=== PATIENT | male | born 1985 | race Caucasian/White ===

== ENCOUNTER 2018-11-17 09:20 | Emergency (ER) | payer OTHER ==
--- NOTE | 2018-11-17 09:25 | ED Physician Documentation ---
General Adult - HISTORIAN Historian: patient - HPI Stated Complaint: feels the back of his throat is swelling shut Chief Complaint: Sore Throat Onset: hours (5) Timing: still present Severity: moderate Further Comments: yes (He reports he "has this happen a lot but usually resolves with benadryl" He reports that he has known his uvula is "large" he states he did drink "a lot last night " Denies any significant vomiting. He feels anxious about this situation.) Last known Well Code/Unknown Code: Unknown - ROS CONST: no problems EYES/ENT: none CVS/RESP: none GI/: none NEURO/PSYCH: anxiety - PAST HX Past History: hypertension Allergies/Adverse Reactions: Allergies Allergy/AdvReac Type Severity Reaction Status Date / Time cephalexin monohydrate Allergy Unknown Verified 11/17/18 09:52 Home Medications: Ambulatory Orders Medication Instructions Recorded Citalopram Hydrobromide [Celexa] 40 mg PO DAILY u2 09/25/15 - SOCIAL HX Smoking History: non-smoker Alcohol Use: occasionally Drug Use: none - FAMILY HX Family History: No - REVIEWED ASSESSMENTS Nursing Assessment Reviewed: Yes Vitals Reviewed: Yes Progress - Progress Progress: 1030: discussed results and plan. He can call ENT clinic Monday or return to nearest ER for any increased concerns DG General Adult Physical Exam - PHYSICAL EXAM GENERAL APPEARANCE: no distress EENT: eye inspection normal, pharynx normal, no signs of dehydration, other (uvula is long although airway is open. No swelling noted ) RESPIRATORY: no resp distress, chest non-tender, breath sounds normal CVS: reg rate & rhythm, equal pulses ABDOMEN: soft, no distension BACK: normal inspection SKIN: warm/dry, normal color EXTREMITIES: non-tender NEURO: oriented X3 Discharge Clincal Impression: Elongated uvula, acquired Referrals: Milagros Gutierrez MD [Primary Care Provider] - 2 Days Comments: 1. Medrol Dose pack - as directed start 0.12.04 2. Zantac 150 mg take 1 by mouth twice daily 3. warm salt water gargles 4. return to nearest ER for any new concerns 5. Continue benadryl as directed 6. ENT - [facility] Condition: Stable Disposition: 01 HOME, SELF-CARE Decision to Admit: NO Date of Decison to Admit: 11/17/18 Decision Time: 10:35
[2018-11-17] MEDS ORDERED: DIPHENHYDRAMINE HCL 25 MG/10 ML CUP PO ONE (09:37)
[2018-11-17] MEDS ORDERED: methylPREDNISolone ACETATE 80 MG/ML VIAL IM ONE (09:37)
[2018-11-17] MEDS ORDERED: LORazepam 1 MG TABLET PO ONE ×2 (09:38→09:39)
[2018-11-17] MEDS ORDERED: diphenhydrAMINE HCL 25 MG TABLET PO ONE ×2 (09:40→09:41)
[2018-11-17 10:48] VITALS: BP 142/98
== END 2018-11-17 10:45 | disposition home or self-care (01) ==
LOC: ED 09:20
DX: J39.8 Other specified diseases of upper respiratory tract (principal)
CPT/HCPCS: 96372; 99283; J1040; Q0163